=== PATIENT | female | born 1950 | race Hispanic/Latino ===

== ENCOUNTER 2016-06-26 07:12 | Emergency (ER) | payer MEDICARE ==
[2016-06-26 07:47] VITALS: BP 141/65
--- NOTE | 2016-06-26 10:29 | Emergency Department Report ---
Entered by ABDULLAHI HUDSON, acting as scribe for RADHA SESAY PA. ED Extremity Problem HPI - General Chief complaint: Extremity Injury, Lower Stated complaint: LEFT FOOT PAIN Time Seen by Provider: 06/26/16 09:52 Source: patient Mode of arrival: Ambulatory Limitations: No Limitations - History of Present Illness Initial comments: 66 y/o female presents c/o 10/09, sharp, throbbing left heel pain that started 3- 4 months ago and worsened last night. Pain does not radiate and is aggravated by walking. She notes there was no trauma to the area. Pt denies any calf pain. No additional Sx. MD Complaint: extremity pain (left heel) -: month(s) (3-4) Location: left (heel) Radiation: none Severity scale (0 -10): 8 Quality: sharp Consistency: constant Improves with: rest Worsens with: walking Associated Symptoms: denies other symptoms - Related Data Previous Rx's Medication Instructions Recorded Last Taken Type Acetaminophen/Diphenhydramine 1 each PO QHS #20 tablet 06/26/16 Unknown Rx [Tylenol Pm Ex-Strength Caplet] Ibuprofen [Motrin] 400 mg PO Q8H PRN #30 tablet 06/26/16 Unknown Rx Allergies Allergy/AdvReac Type Severity Reaction Status Date / Time codeine Allergy Hives Verified 06/26/16 07:40 ED Review of Systems Comment: All other systems reviewed and negative Constitutional: denies: chills, fever Respiratory: denies: cough, shortness of breath Cardiovascular: denies: chest pain Gastrointestinal: denies: abdominal pain, nausea, vomiting, diarrhea Musculoskeletal: other (left heel pain worsened by walking but pt denies calf pain) ED Past Medical Hx - Past Medical History Hx Arthritis: Yes (back & legs) Hx Tuberculosis: No - Surgical History Hx Pacemaker: Yes Additional Surgical History: HYSTERECTOMY - Social History Smoking Status: Current Every Day Smoker Substance Use Type: None - Medications Home Medications: Home Medications Medication Instructions Recorded Confirmed Last Taken Type Acetaminophen/Diphenhydramine 1 each PO QHS #20 tablet 06/26/16 Unknown Rx [Tylenol Pm Ex-Strength Caplet] Ibuprofen [Motrin] 400 mg PO Q8H PRN #30 tablet 06/26/16 Unknown Rx ED Physical Exam - General Limitations: No Limitations - Other Other exam information: GENERAL: Patient is alert and oriented x 3. No apparent distress, normal gait, atraumatic. HEAD: Head is normocephalic and atraumatic. EYES: Extraocular movements are intact. NECK: Supple. Non edematous, no carotid bruits. No lymphadenopathy or thyromegaly. LUNGS: Symmetrical with respiration. No wheezing, rales or crackles, CTAB. HEART: Regular rate and rhythm with normal S1/S2 present. No murmurs, rubs, or gallops. ABDOMEN: Soft, nondistended. Nontender to palpation on all quadrants. No organomegaly was noted. Positive bowel sounds. No CVA tenderness. EXTREMITIES/MUSCULOSKELETAL: No cyanosis, clubbing, rash, lesions or edema. Full ROM bilaterally. LE Pulses 2+ bilaterally. LE 5+ strength bilaterally. Moderate pain with palpation of the sole of her left foot. No ecchymosis, no bruising, no trauma noted SKIN: Warm and dry. No lesions, ulceration or induration present NEUROLOGIC: No focal deficit. ED Course Vital Signs 06/26/16 07:42 Temperature 98.0 F Pulse Rate 85 Respiratory 17 Rate Blood Pressure 141/65 O2 Sat by Pulse 98 Oximetry ED Medical Decision Making - Medical Decision Making Discussed with patient to follow up with PCP as referred, and to return to the ED if her symptoms return or worsen. Patient states understanding and will follow instructions. Vital signs stable, patient is in no acute distress. Foot was Steven wrapped discussed the patient to get Dr. Davies while at work. Discussed rest of foot. ED Disposition Clinical Impression: Strain of left foot Qualifiers: Encounter type: initial encounter Qualified Code(s): S96.912A - Strain of unspecified muscle and tendon at ankle and foot level, left foot, initial encounter Disposition: DISCHARGED TO HOME OR SELFCARE Is pt being admited?: No Does the pt Need Aspirin: No Condition: Stable Instructions: Musculoskeletal Pain (ED), Ankle Exercises (GEN), Muscle Strain ( ED), Heat Pack Application (ED) Additional Instructions: Follow-up instructions as given. Follow-up with her primary care physician. warned symptoms worsen return to ED. Prescriptions: Acetaminophen/Diphenhydramine [Tylenol Pm Ex-Strength Caplet] 1 each PO QHS #20 tablet Ibuprofen [Motrin] 400 mg PO Q8H PRN #30 tablet PRN Reason: Pain Referrals: YOVANA CLARK MD [Primary Care Provider] - 3-5 Days Forms: Work/School Release Form Time of Disposition: 10:27 This documentation as recorded by the TRISTAN vizcarra RYAN,accurately reflects the service I personally performed and the decisions made by ,RADHA SESAY PA.
== END 2016-06-26 10:40 | disposition home or self-care (01) ==
LOC: ED 07:12
DX: S96.912A Strain of unspecified muscle and tendon at ankle and foot level, left foot, initial encounter (principal); M19.90 Unspecified osteoarthritis, unspecified site; F17.200 Nicotine dependence, unspecified, uncomplicated; Z95.0 Presence of cardiac pacemaker; Z90.710 Acquired absence of both cervix and uterus; Z88.6 Allergy status to analgesic agent; X58.XXXA Exposure to other specified factors, initial encounter; Y93.01 Activity, walking, marching and hiking; Y99.8 Other external cause status; Y92.89 Other specified places as the place of occurrence of the external cause
CPT/HCPCS: 99282

== ENCOUNTER 2018-07-29 12:49 | Observation (INO) | payer MEDICARE ==
--- NOTE | 2018-07-29 13:32 | Emergency Department Report ---
Blank Doc - Documentation Documentation: This is a 68-year-old female that presents with SOB and CP. HX of pace maker. Was sent by steam oven operator. This initial assessment/diagnostic orders/clinical plan/treatment(s) is/are subject to change based on patient's health status, clinical progression and re- assessment by fellow clinical providers in the ED. Further treatment and workup at subsequent clinical providers discretion. Patient/guardians urged not to elope from the ED as their condition may be serious if not clinically assessed and managed. Initial orders include: 1- Patient sent to MAIN ED for further evaluation and treatment 2- labs 3- EKG 4- CXR
--- NOTE | 2018-07-29 13:59 | XRay Report ---
ROUTINE CHEST, TWO VIEWS: HISTORY: chest pain. The trachea, heart, mediastinal contour, lung mg and bony thorax are unremarkable. A 2-lead pacemaker device is in position. IMPRESSION: Unremarkable chest x-ray.
[2018-07-29 14:06] LABS: Basophils # (Auto) 0.1 K/mm3 (0.0-0.1); Basophils % (Auto) 0.9 % (0.0-1.8); Eosinophils # (Auto) 0.3 K/mm3 (0.0-0.4); Hematocrit 38.8 % (30.3-42.9); Hemoglobin 13.6 gm/dl (10.1-14.3); Lymphocytes # (Auto) 1.7 K/mm3 (1.2-5.4); Lymphocytes % (Auto) 25.9 % (13.4-35.0); Mean Corpuscular HGB Conc 35 % (30-34); Mean Corpuscular Volume 95 fl (79-97); Monocytes # (Auto) 0.5 K/mm3 (0.0-0.8); Monocytes % (Auto) 7.6 % (0.0-7.3); Platelet Count 172 K/mm3 (140-440); Red Blood Count 4.08 M/mm3 (3.65-5.03); Red Cell Distribution Width 13.7 % (13.2-15.2)
[2018-07-29 14:18] LABS: INR 1.03 (0.87-1.13)
[2018-07-29 14:28] LABS: BUN/Creatinine Ratio 13; Blood Urea Nitrogen 14 mg/dL (7-17); Calcium 8.8 mg/dL (8.4-10.2); Hemolysis Index 8
[2018-07-29] MEDS ORDERED: MORPHINE IV PRN ×2 (16:30→16:40)
[2018-07-29] MEDS ORDERED: ZOFRAN IV ONE (16:30)
[2018-07-29] MEDS ORDERED: NITRO-BID 2% TP ONE (16:30)
[2018-07-29] MEDS ORDERED: ASPIRIN PO ONE (16:31)
--- NOTE | 2018-07-29 16:36 | Emergency Department Report ---
HPI - General Chief Complaint: Chest Pain Time Seen by Provider: 07/29/18 13:31 - HPI HPI: Room 18 The patient is a 68-year-old female presenting with chief complaint of chest pain. The patient states for the past 2-3 days she's had intermittent subster nal chest heaviness associated with shortness of breath. Patient denies nausea or vomiting. Patient denies diaphoresis. The patient states she contacted her clipper operator's office (Dr. Zamudio [facility]) who in turn instructed her to come to the ED. The patient states her last stress test and cardiac catheterization occurred approximately 5 years ago Location: Chest Duration: Intermittent 2-3 days Quality: Heaviness Severity: Currently 0/10 Modifying factors: [see above] Context: [see above] Mode of transportation: [not driving] ED Past Medical Hx - Past Medical History Hx Arthritis: Yes (back & legs) - Surgical History Hx Pacemaker: Yes Additional Surgical History: HYSTERECTOMY PACEMAKER - Family History Family history: no significant - Social History Smoking Status: Never Smoker Substance Use Type: None - Medications Home Medications: Home Medications Medication Instructions Recorded Confirmed Last Taken Type Acetaminophen/Diphenhydramine 1 each PO QHS #20 tablet 06/26/16 Unknown Rx [Tylenol Pm Ex-Strength Caplet] Ibuprofen [Motrin] 400 mg PO Q8H PRN #30 tablet 06/26/16 Unknown Rx ED Review of Systems ROS: Stated complaint: CHEST PAIN Other details as noted in HPI Constitutional: denies: diaphoresis Eyes: denies: eye pain ENT: denies: throat pain Respiratory: shortness of breath Cardiovascular: chest pain Endocrine: no symptoms reported Gastrointestinal: denies: nausea, vomiting Genitourinary: denies: dysuria Musculoskeletal: denies: back pain Neurological: denies: headache Physical Exam - Physical Exam Vital Signs: Vital Signs 07/29/18 13:13 Temperature 97.8 F Pulse Rate 69 Respiratory 18 Rate Blood Pressure 145/62 O2 Sat by Pulse 98 Oximetry Physical Exam: GENERAL: The patient is well-developed well-nourished female lying on stretcher not appearing to be in acute distress. [] HEENT: Normocephalic. Atraumatic. Extraocular motions are intact. Patient has moist mucous membranes. NECK: Supple. Trachea midline CHEST/LUNGS: Clear to auscultation. There is no respiratory distress noted. HEART/CARDIOVASCULAR: Regular. There is no tachycardia. There is no gallop rub or murmur. ABDOMEN: Abdomen is soft, nontender. Patient has normal bowel sounds. There is no abdominal distention. SKIN: There is no rash. There is no edema. There is no diaphoresis. NEURO: The patient is awake, alert, and oriented. The patient is cooperative. The patient has normal speech MUSCULOSKELETAL: There is no evidence of acute injury. ED Course Vital Signs 07/29/18 13:13 Temperature 97.8 F Pulse Rate 69 Respiratory 18 Rate Blood Pressure 145/62 O2 Sat by Pulse 98 Oximetry ED Medical Decision Making - Lab Data Result diagrams: 07/29/18 13:52 07/29/18 13:52 Laboratory Tests 07/29/18 07/29/18 07/29/18 13:52 13:52 13:52 WBC 6.7 RBC 4.08 Hgb 13.6 Hct 38.8 MCV 95 MCH 34 H MCHC 35 H RDW 13.7 Plt Count 172 Lymph % (Auto) 25.9 [place] % (Auto) 7.6 H Eos % (Auto) 5.0 H Baso % (Auto) 0.9 Lymph # 1.7 [place]ner # 0.5 Eos # 0.3 Baso # 0.1 Seg Neutrophils % 60.6 Seg Neutrophils # 4.1 PT 14.1 INR 1.03 APTT 31.0 Sodium 138 Potassium 3.9 Chloride 100.4 Carbon Dioxide 26 Anion Gap 16 BUN 14 Creatinine 1.1 Estimated GFR 49 BUN/Creatinine Ratio 13 Glucose 103 H Calcium 8.8 Troponin T < 0.010 - EKG Data -: EKG Interpreted by Me EKG shows normal: sinus rhythm Rate: normal - EKG Data When compared to previous EKG there are: changes noted Interpretation: nonspecific ST-T wave lola (new T-wave inversions in leads V2, V3, V4 when compared to previous EKG dated 12/26/2013) - Radiology Data Radiology results: report reviewed (chest x-ray), image reviewed (chest x-ray) interpreted by me: Chest x-ray-no focal infiltrates, no pneumothorax [facility] [address] [place] [address] XRay Report Signed Patient: RUPERTO PETERSON MR#: [id number] : 1950 Acct:[id number] Age/Sex: 68 / F ADM Date: 07/29/18 Loc: ED Attending Dr: Ordering Physician: MAGY ESQUIVEL NP Date of Service: 07/29/18 Procedure(s): XR chest routine 2V Accession Number(s): [id number] cc: MAGY ESQUIVEL NP Fluoro Time In Minutes: ROUTINE CHEST, TWO VIEWS: HISTORY: chest pain. The trachea, heart, mediastinal contour, lung mg and bony thorax are unremarkable. A 2-lead pacemaker device is in position. IMPRESSION: Unremarkable chest x-ray. Transcribed By: TTR Dictated By: ROMERO BORJA JR, MD Electronically Authenticated By: ROMERO BORJA JR, MD Signed Date/Time: 07/29/18 135 DD/ 53 TD/TT: 07/29/18 135 - Differential Diagnosis ACS, angina, pericarditis, GERD Critical care attestation.: If time is entered above; I have spent that time in minutes in the direct care of this critically ill patient, excluding procedure time. ED Disposition Clinical Impression: Chest pain, T wave inversion in EKG Disposition: OP ADMIT IP TO THIS HOSP Is pt being admited?: Yes Does the pt Need Aspirin: Yes Condition: Fair Instructions: Chest Pain (ED) Referrals: PRIMARY CARE, [Primary Care Provider] - 3-5 Days Time of Disposition: 16:36 (hospitalist notified (Dr Fisher))
--- NOTE | 2018-07-29 16:38 | History and Physical Report ---
History of Present Illness Chief complaint: My chest hurts History of present illness: 68 YO Female with OA, Obesity, Cardiomyopathy S/P Pacemaker Placement presents to ED for evaluation. The patient states that she has experienced pain in her chest over the past 2 days with worsening symptoms over the past 1 day. Pt states that pain is 6/10, intermittent with increased frequency and intensity over the past 1 day, crushing in nature, substernal, nonradiating, not worsened with exertion, or relieved with rest. Pt acknowledges shortness of breath, decreased exercise tolerance, dypsnea on exertion. The patient states she contacted her director of regulatory affairs's office (Dr. Zamudio [facility]) who in turn instructed her to come to the ED. Pt seen and evaluated in ED and found to have symptoms consistent with Angina, as well as CHF Decompensation. Pt admitted to telemetry. Cardiology consulted in ED. No prior admission for review. All listed medication reconciled at time of admission. Past History Past Medical History: arthritis, hypertension, other (Obesity, Cardiomyopathy) Past Surgical History: Other (Pacemaker placement) Social history: . denies: smoking, alcohol abuse, prescription drug abuse Family history: denies: hypertension Medications and Allergies Allergies Allergy/AdvReac Type Severity Reaction Status Date / Time codeine Allergy Hives Verified 07/29/18 13:13 Home Medications Medication Instructions Recorded Confirmed Last Taken Type Acetaminophen/Diphenhydramine 1 each PO QHS #20 tablet 06/26/16 07/29/18 Unknown Rx [Tylenol Pm Ex-Strength Caplet] Pantoprazole [Protonix] 40 mg PO QDAY #30 tablet 07/30/18 Unknown Rx Active Meds: Active Medications Morphine Sulfate (Morphine) 4 mg IV ONCE PRN PRN Reason: Pain, Moderate (4-6) Review of Systems Constitutional: no weight loss, no weight gain, no fever, no chills Ears, nose, mouth and throat: no ear pain, no ear discharge, no tinnitis, no decreased hearing, no nose pain, no nasal congestion Cardiovascular: chest pain, shortness of breath, dyspnea on exertion, decreased exercise tolerance, no palpitations, no rapid/irregular heart beat Respiratory: no cough, no cough with sputum, no excessive sputum, no hemoptysis Gastrointestinal: no abdominal pain, no nausea, no vomiting, no diarrhea, no constipation Genitourinary Female: no dysmenorrhea, no pelvic pain, no flank pain, no menorrhagia, no dysuria Rectal: no pain, no incontinence Musculoskeletal: no neck stiffness, no shooting arm pain, no arm numbness/tingling, no low back pain Integumentary: no rash, no pruritis, no redness, no sores, no wounds Neurological: no transient paralysis, no paralysis, no weakness, no parathesias, no numbness, no tingling, no seizures Psychiatric: no anxiety, no memory loss, no change in sleep habits, no sleep disturbances, no insomnia, no hypersomnia, no change in appetite Endocrine: no cold intolerance, no heat intolerance, no polyphagia, no excessive thirst, no polydipsia, no polyuria, no nocturia Hematologic/Lymphatic: no easy bruising, no easy bleeding, no lymphadenopathy, no lymphedema Allergic/Immunologic: no urticaria, no persistent infections Exam - Constitutional Vitals: Temp Pulse Resp BP Pulse Ox 97.8 F 69 18 145/62 98 07/29/18 13:13 07/29/18 13:13 07/29/18 13:13 07/29/18 13:13 07/29/18 13:13 General appearance: Present: mild distress, obese - EENT Eyes: Present: PERRL ENT: hearing intact, clear oral mucosa - Neck Neck: Present: supple, normal ROM - Respiratory Respiratory effort: normal Respiratory: bilateral: CTA - Cardiovascular Heart Sounds: Present: S1 & S2. Absent: rub, click - Extremities Extremities: pulses symmetrical, No edema Peripheral Pulses: within normal limits - Abdominal General gastrointestinal: Present: soft, non-tender, non-distended, normal bowel sounds Female genitourinary: Present: normal - Integumentary Integumentary: Present: clear, warm, dry - Musculoskeletal Musculoskeletal: gait normal, strength equal bilaterally - Psychiatric Psychiatric: appropriate mood/affect, intact judgment & insight - Neurologic Neurologic: CNII-XII intact, moves all extremities Results - Labs CBC & Chem 7: 07/29/18 13:52 07/29/18 13:52 Labs: Abnormal lab results 07/29/18 07/29/18 Range/Units 13:52 13:52 MCH 34 H (28-32) pg MCHC 35 H (30-34) % [place] % (Auto) 7.6 H (0.0-7.3) % Eos % (Auto) 5.0 H (0.0-4.3) % Glucose 103 H (65-100) mg/dL Assessment and Plan - Patient Problems (1) Angina at rest Status: Acute Plan to address problem: Serial cardiac enzymes, ekg, telemetry, stress test, cardiology consulted in ED, morphine, supplemental oxygen, nitro, aspirin (2) Diastolic CHF Status: Acute Qualifiers: Heart failure chronicity: acute Qualified Code(s): I50.31 - Acute diastolic (congestive) heart failure Plan to address problem: Admit to telemetry, strict I/O, daily weight, bnp, afterload reduction, pulse oximetry, blood pressure control, cardiology consulted in ED, (3) HTN (hypertension) Status: Acute Qualifiers: Hypertension type: essential hypertension Qualified Code(s): I10 - [place] l (primary) hypertension Plan to address problem: Monitor BP q shift, blood pressure control. (4) Obesity hypoventilation syndrome Status: Acute Plan to address problem: Supplemental oxygen, nebulizer therapy, pulse oximetry, NIPPV as clinically indicated, balanced diet, and increased physical activity at discharge. (5) DVT prophylaxis Status: Acute Plan to address problem: SCD to BLE while in bed,
[2018-07-29] MEDS ORDERED: NITROSTAT SL PRN (16:40)
[2018-07-29] MEDS ORDERED: ZOFRAN IV PRN (16:40)
[2018-07-29] MEDS ORDERED: PERCOCET 5/325 PO PRN (16:40)
[2018-07-29] MEDS ORDERED: SODIUM CHLORIDE FLUSH SYRINGE 10 ML IV PRN ×2 (16:40)
[2018-07-29] MEDS ORDERED: PROVENTIL IH PRN (16:40)
[2018-07-29] MEDS ORDERED: IBUPROFEN PO PRN (16:44)
[2018-07-29] MEDS ORDERED: BABY ASPIRIN PO STA (16:49)
[2018-07-29] MEDS ORDERED: TYLENOL PO PRN (17:40)
[2018-07-29 19:01] LABS: Chol/HDL Ratio 5.17 %
[2018-07-29] MEDS ORDERED: NON-FORMULARY (Acetaminophen/Diphenhydramine [Tylenol Pm Ex-Strength Caplet] 1 EACH) PO SCH (22:00)
[2018-07-29] MEDS: PEPCID PO SCH (23:16)
[2018-07-29] MEDS: SODIUM CHLORIDE FLUSH SYRINGE 10 ML IV SCH (23:16)
[2018-07-30] MEDS ORDERED: LEXISCAN IV ONE ×2 (08:05→08:07)
[2018-07-30 09:22] VITALS: BP 158/72
[2018-07-30] MEDS: PEPCID PO SCH (11:00)
[2018-07-30] MEDS: SODIUM CHLORIDE FLUSH SYRINGE 10 ML IV SCH (11:00)
--- NOTE | 2018-07-30 13:10 | Event Note ---
Date: 07/30/18 Atypical chest pain Normal MPI this admission Echo 07/2016 - normal LVEF Negative D-Dimer Negative troponin x 3 Normal CXR Sick sinus syndrome s/p DC SJM pacemaker Normal function 04/2018 Recommendations: No further cardiac work-up is needed May go home and follow-up with outpatient building construction contractor
--- NOTE | 2018-07-30 14:27 | Discharge Summary ---
Providers - Providers Date of Admission: 07/29/18 16:40 Date of discharge: 07/30/18 Attending physician: MICHELL LONDON 07/29/18 Consult to Cardiac Rehabilitation [CONS] Routine Reason For Exam: Phase I 07/29/18 16:40 Consult to Cardiology [CONS] Routine Consulting Provider: BREN DIAMOND Reason For Exam: Angina/CHF Primary care physician: MACHINE CEMENTER Hospitalization Reason for admission: allergies all the right ear and monitor white blood and he really is in a s Condition: Fair Pertinent studies: CXR MPI stress test Hospital course: 68 YO Female with OA, Obesity, Cardiomyopathy S/P Pacemaker Placement presented to ED for evaluation of chest pain over the past 2 days with worsening symptoms over the past 1 day. The patient states she contacted her cigar tobacco rehandler's office (Dr. Zamudio [facility]) who in turn instructed her to come to the ED. Pt seen and evaluated in ED and admitted to telemetry for further management. Cardiology consulted in ED, [place] were normal, CXR normal, also had Normal MPI in this admission. Patient was then discharged home with PPI and further outpt followup in stable condition. Discharge diagnosis: Atypical chest pain, likely GERD Normal MPI this admission Echo 07/2016 - normal LVEF Negative D-Dimer Negative troponin x 3 Normal CXR Sick sinus syndrome s/p DC SJM pacemaker Normal function 04/2018 Disposition: DC-01 TO HOME OR SELFCARE Time spent for discharge: 34 minutes Core Measure Documentation - Palliative Care Palliative Care/ Comfort Measures: Not Applicable - Core Measures Any of the following diagnoses?: history only Exam - Physical Exam Narrative exam: General appearance: Present: mild distress, obese - EENT Eyes: Present: PERRL ENT: hearing intact, clear oral mucosa - Neck Neck: Present: supple, normal ROM - Respiratory Respiratory effort: normal Respiratory: bilateral: CTA - Cardiovascular Heart Sounds: Present: S1 & S2. Absent: rub, click - Extremities Extremities: pulses symmetrical, No edema Peripheral Pulses: within normal limits - Abdominal General gastrointestinal: Present: soft, non-tender, non-distended, normal bowel sounds Female genitourinary: Present: normal - Integumentary Integumentary: Present: clear, warm, dry - Musculoskeletal Musculoskeletal: gait normal, strength equal bilaterally - Psychiatric Psychiatric: appropriate mood/affect, intact judgment & insight - Neurologic Neurologic: CNII-XII intact, moves all extremities - Constitutional Vitals: Temp Pulse Resp BP Pulse Ox 97.6 F 60 18 158/72 96 07/30/18 07:32 07/30/18 04:34 07/30/18 07:32 07/30/18 08:46 07/30/18 04:34 Plan Activity: advance as tolerated Weight Bearing Status: Partial Weight Bearing Diet: low fat, low salt Follow up with: PRIMARY MD RAMY [Primary Care Provider] - 3-5 Days SHANE GONZALEZ MD [Staff Physician] - 7 Days Forms: Work/School Release Form Prescriptions: Pantoprazole [Protonix] 40 mg PO QDAY #30 tablet
[2018-07-30] MEDS ORDERED: LOVENOX SUB-Q SCH (22:00)
--- NOTE | 2018-07-31 02:59 | Treadmill Report ---
INDICATION: Chest pain. ORDERING PHYSICIAN: Kenia Delgado MD FINDINGS: There is no scintigraphic evidence of myocardial ischemia. The left ventricle is normal in size and systolic function. The left ventricular ejection fraction is measured at 69% with normal wall motion and wall thickening on gated imaging. CONCLUSION: Normal perfusion scan. JOB# [id number] CARLO/ROBINSON
== END 2018-07-30 16:27 | disposition home or self-care (01) ==
LOC: ED 12:49 → 4A 16:40 → INTOOBSV 16:40
PROVIDERS: ADMIT Internal Medicine; ATTEND Internal Medicine
DX: I50.31 Acute diastolic (congestive) heart failure (principal); I11.0 Hypertensive heart disease with heart failure; I20.8 Other forms of angina pectoris; E66.9 Obesity, unspecified; I49.5 Sick sinus syndrome; Z88.8 Allergy status to other drugs, medicaments and biological substances
CPT/HCPCS: 36415; 71046; 78452; 80048; 80061; 83880; 84484; 85025; 85379; 85610; 85730; 93005; 93010; 93017; 99284; A9502; G0378; J2785; 96374; 96375